=== PATIENT | female | born 1935 | race Caucasian/White ===

== ENCOUNTER → 2016-10-07 | Outpatient (CLI) | payer MEDICARE, BC ==
[2016-10-07 13:41] LABS: Blood Urea Nitrogen 9 mg/dL (7-17); Non-African American GFR(MDRD) >60 (>60 ml/min/1.73 sqM)
--- NOTE | 2016-10-07 15:03 | CT ---
EXAMINATION TYPE: CT chest w con DATE OF EXAM: 10/07/2016 2:02 PM COMPARISON: Chest CT April 12, 2016 and older CTs back through July 01, 2013. HISTORY: Patient has no complaints at time of study. Follow up study for known lung CA. CT DLP: 417 mGycm. Automated Exposure Control for Dose Reduction was Utilized. TECHNIQUE: CT scan of the thorax is performed following with IV Contrast, patient injected with 100 mL of Omnipaque 300. FINDINGS: LUNGS: Mild underlying emphysematous change is redemonstrated. Surgical changes right hilar level wit h clips and right-sided volume loss is redemonstrated. There are some scattered areas of scarring thr oughout the mid and lower lungs bilaterally. Ill-defined groundglass opacity in the right midlung is present slightly more prominent on current study near axial image 29. Nonspecific finding consider ed parker and/or infiltrate. Small area of pleural thickening anterolateral right lower lung on axial image 36 is redemonstrated and stable. No new parenchymal nodule or mass is clearly seen bilaterally. No p leural effusion or pneumothorax is noted. MEDIASTINUM: There is enlarging right hilar lymph node measuring 1.7 x 1.5 cm on axial image 28. The re is increasing prominent AP window, right paratracheal, and prevascular lymph nodes on axial image 22. Surgical changes from esophagectomy and gastric pull-up procedure are redemonstrated. OTHER: Heterogeneously dense fibroglandular tissue remains present in both breasts. There is healed a nterolateral right rib fractures redemonstrated. IMPRESSION: Some new thoracic adenopathy is felt now present. Recurrent neoplasm cannot be excluded. Consider PET/CT follow-up.
== END | disposition home or self-care (01) ==
LOC: RADCTMAIN 12:21
PROVIDERS: ATTEND Internal Medicine Hematology & Oncology
DX: C34.90 Malignant neoplasm of unspecified part of unspecified bronchus or lung (principal)
CPT/HCPCS: 82565; 84520; 71260; 36415; Q9967

== ENCOUNTER → 2016-12-07 | Outpatient (CLI) | payer MEDICARE, BC ==
--- NOTE | 2016-12-08 10:25 | PE ---
Nuclear medicine PET/CT HISTORY: C 34.90, lung carcinoma Patient received 13.6 mCi F-18 FDG intravenously. Delayed scanning performed from the skull base to t he mid thighs. Localization and attenuation correction CT scan was performed, correlation is made to chest CT 07 October 2016, prior nuclear medicine PET/CT sixth of December 2012 FINDINGS: Neck and chest: Emphysematous changes are present within the lungs. Some vague nodularity is present at the left lung base without corresponding hypermetabolic uptake. Postop changes are again noted. Nodularity present in the right lung laterally was not evident on prior CT, there is a subpleural nod ule measuring 15 mm, additional nodule measuring 8 mm more centrally. There is corresponding hypermet abolic uptake. Right hilar nodes shows an SUV value of only approximately 2, the nodularity within th e peripheral lung measures 2.6, more central nodular density SUV 2.3. Focus of hypermetabolic uptake within the gastric pull-through measures 2.4 SUV and is of questionable clinical significance. Abdomen pelvis: Adrenal glands are unremarkable. No retroperitoneal adenopathy. No suspicious hyperme tabolic uptake. Diverticular change in the sigmoid colon. Bones are stable. IMPRESSION: Suspicious hypermetabolic uptake in the right lung and possibly hilar region as described
== END | disposition home or self-care (01) ==
LOC: RADPETMAIN 08:16
PROVIDERS: ATTEND Internal Medicine Hematology & Oncology
DX: C34.90 Malignant neoplasm of unspecified part of unspecified bronchus or lung (principal)
CPT/HCPCS: 78815; A9552

== ENCOUNTER → 2017-03-07 | Outpatient (CLI) | payer MEDICARE, BC ==
[2017-03-07 10:22] LABS: Blood Urea Nitrogen 13 mg/dL (7-17); Non-African American GFR(MDRD) >60 (>60 ml/min/1.73 sqM)
--- NOTE | 2017-03-07 11:22 | CT ---
EXAMINATION TYPE: CT chest w con DATE OF EXAM: 03/07/2017 COMPARISON: 12/07/2016, 116 7 HISTORY: Lung cancer CT DLP: 139.60 mGycm Automated exposure control for dose reduction was used. CONTRAST: CT scan of the chest is performed with IV Contrast, patient injected with 100 ml mL of Omnipaque 300. FINDINGS: LUNGS: Apical pleural-based nodule right upper lobe noted measuring 2 mm stable. Posterior pleural-ba sed 2 mm nodule left upper lobe stable. Subsegmental linear changes most typical of atelectasis. [place]ares ges of COPD are noted. Subsegmental areas are seen in both lung bases as well of atelectasis. Correlate for previous gastric surgery with possible pull-through procedure MEDIASTINUM: No pathologic adenopathy within the mediastinum, hilum or axilla. 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 Extensive degenerative changes of the spin e noted.. IMPRESSION: 1. A pleural-based nodule/ consolidation seen by recent PET scan has resolved. 2. Less than 5 mm subpleural nodularity bilaterally is nonspecific stable from previous CT scan. 3. No pathologic adenopathy.
== END ==
LOC: RADCTMAIN 09:46
PROVIDERS: ATTEND Internal Medicine Hematology & Oncology
DX: C34.90 Malignant neoplasm of unspecified part of unspecified bronchus or lung (principal)
CPT/HCPCS: 82565; 84520; 71260; 36415; Q9967

== ENCOUNTER → 2017-09-29 | Outpatient (CLI) | payer MEDICARE ==
[2017-09-29 12:08] LABS: Blood Urea Nitrogen 12 mg/dL (7-17)
--- NOTE | 2017-09-29 12:46 | CT ---
EXAMINATION TYPE: CT chest w con DATE OF EXAM: 09/29/2017 COMPARISON: 03/07/2017 HISTORY: Follow up on right sided lung cancer CT DLP: 144.0 mGycm Automated exposure control for dose reduction was used. CONTRAST: CT scan of the chest is performed with IV Contrast, patient injected with 100 mL of Omnipaque 300. FINDINGS: LUNGS: Apical pleural-based nodule right upper lobe noted measuring 2 mm stable. Posterior pleural-ba sed 2 mm nodule left upper lobe stable. Subsegmental linear changes most typical of atelectasis. Changes of COPD are noted. Subsegmental area s are seen in both lung bases as well of atelectasis. Correlate for previous gastric surgery with possible pull-through procedure. There is a 5 mm nodule along the posterior margin of the left lower lobe and a ill-defined nodular de nsity in the right upper lobe image 30 measuring 3 mm. These are too small to characterize but not de finitively seen on the previous exam. MEDIASTINUM: There are no greater than 1 cm hilar or mediastinal lymph nodes. No pericardial effusi on is seen. OTHER: There is fusion of 2 right-sided ribs which are stable. Degenerative change of the spine note d. IMPRESSION: 1. There is a 5 mm nodule seen in the left lower lobe posteriorly and 3 mm nodule right upper lobe im age 29 which were not definitively seen on the previous exam and may represent new pulmonary nodules. Additional follow-up CT scan is recommended on a short-term basis given the small size of the nodule s. No pathologic adenopathy.
== END | disposition home or self-care (01) ==
LOC: RADCTMAIN 11:26
PROVIDERS: ATTEND Internal Medicine Hematology & Oncology
DX: C34.90 Malignant neoplasm of unspecified part of unspecified bronchus or lung (principal)
CPT/HCPCS: 82565; 84520; 71260; 36415; Q9967

== ENCOUNTER 2017-12-26 13:57 | Emergency (ER) | payer BC, MEDICARE ==
[2017-12-26] MEDS ORDERED: SODIUM CHLORIDE 0.9% 500 ML IV STA (15:05)
--- NOTE | 2017-12-26 15:08 | ED ---
General Adult HPI - General Chief complaint: Weakness Stated complaint: Weakness Time Seen by Provider: 12/26/17 14:24 Source: patient, family, RN notes reviewed Mode of arrival: ambulatory Limitations: no limitations - History of Present Illness Initial comments: Chief complaint and history of present illness an 82-year-old female here with her daughter. The patient has a child complaint of feeling weak. Patient reports her going back to late October she was treated twice with a Z-Yahir for chronic bronchitis. She's also been seeing an fur stretcher for her persistent cough occasionally yellow. Phlegm with speckles of yellow. Patient Teofilo Joaquina in for COPD. Decreased appetite. Denies fever or pain. States she was so weak this morning she had difficulty walking after she cleaned her house. - Related Data Home Medications Medication Instructions Recorded Confirmed Albuterol Nebulized [Ventolin 2.5 mg INHALATION RT-TID 01/25/14 12/26/17 Nebulized] Benazepril [Lotensin] 5 mg PO DAILY 01/25/14 12/26/17 Lansoprazole [Prevacid] 30 mg PO AC-[id number] 01/25/14 12/26/17 Metoprolol Tartrate [Lopressor] 25 mg PO BID 01/25/14 12/26/17 Montelukast [Singulair] 10 mg PO HS 01/25/14 12/26/17 Albuterol Sulfate [Proair Hfa] 1 - 2 puff INHALATION RT-Q6H PRN 09/15/14 Budesonide-Formot 160-4.5 Mcg 1 puff INHALATION RT-BID 09/15/14 12/26/17 [Symbicort 160-4.5 Mcg Inhaler] Ascorbic Acid [Vitamin C] 1,000 mg PO DAILY 12/26/17 12/26/17 Cholecalciferol [Vitamin D3] 1,000 unit PO DAILY 12/26/17 12/26/17 Cider Vinegar [Apple Cider Vinegar] 300 mg PO DAILY 12/26/17 12/26/17 Echinacea 400 mg PO DAILY 12/26/17 12/26/17 Melatonin 10 mg PO HS 12/26/17 12/26/17 Multivitamins, Thera [Multivitamin 1 tab PO DAILY 12/26/17 12/26/17 (formulary)] Ubidecarenone [Co Q-10] 100 mg PO DAILY 12/26/17 12/26/17 Vitamin A 8,000 unit PO DAILY 12/26/17 12/26/17 Vitamin B Complex 1 cap PO DAILY 12/26/17 12/26/17 Vitamin E 1,000 unit PO DAILY 12/26/17 12/26/17 Previous Rx's Medication Instructions Recorded Ciprofloxacin HCl [Cipro] 500 mg PO Q12HR #14 tablet 12/26/17 Phenazopyridine [Pyridium] 200 mg PO TID #6 tablet 12/26/17 Allergies Allergy/AdvReac Type Severity Reaction Status Date / Time Penicillins Allergy Rash/Hives, Verified 12/26/17 14:30 swelling at injection site sulfamethoxazole AdvReac Diarrhea Verified 12/26/17 14:30 [From Bactrim] trimethoprim [From Bactrim] AdvReac Diarrhea Verified 12/26/17 14:30 Review of Systems ROS Statement: Those systems with pertinent positive or pertinent negative responses have been documented in the HPI. Review of systems no headache or visual acuity changes, she has had cataract surgery. Denies any sore throat. Denies chest pain but states her breathing feels as though it's tight, has history of COPD. Updrafts 3 times daily. Stop using her Spiriva one month ago because of frequent urinations. Denies fevers. Denies nausea vomiting or diarrhea. No neuro deficits. Subjective complaint of feeling weak this past several days. All systems were reviewed Past medical problems significant for asthma, COPD, lung cancer 4 years ago. Patient had surgery followed by chemotherapy. Check CAT scan this past September and she states there is been no recurrence. Other medical problems include GERD and reflux. Hypertension and diverticulosis. Patient's surgeries include tonsillectomy, appendectomy bilateral knee arthroscopy. She also reports that she had a hiatal hernia surgery that resulted in a perforation of the esophagus. Subsequent surgery called for a stomach to be pulled up in her chest. cancers in the family include a sister with breast cancer. The patient has ALLERGIES to penicillin and sulfa. She quit smoking 25 years ago. Drinks 2 beers per day. ROS Other: All systems not noted in ROS Statement are negative. Past Medical History Past Medical History: Asthma, Cancer, COPD, GERD/Reflux, Hypertension Additional Past Medical History / Comment(s): arrythmia, hx diverticulitis, hx lung cancer History of Any Multi-Drug Resistant Organisms: MRSA Date of last positivie culture/infection: 12/27/2013 MDRO Source:: lung and wound Past Surgical History: Appendectomy, Tonsillectomy Additional Past Surgical History / Comment(s): neema knee arthroscopy, rt lower lobectomy, hiatal hernia surgery, cataracts Past Anesthesia/Blood Transfusion Reactions: Motion Sickness Past Psychological History: No Psychological Hx Reported Smoking Status: Former smoker Past Alcohol Use History: Daily Past Drug Use History: None Reported - Past Family History Sister(s) Family Medical History: Cancer General Exam - General Exam Comments Initial Comments: General: The patient is awake and alert, in no distress, and does not appear acutely ill. Complains of feeling weak in general increasing over the past week. No specific complaints of pain. COPD history. Vital signs temperature 98.6 pulse 99 respiratory rate 20 pulse ox 98% room air blood pressure 138/67 Eye: Pupils are equal, round and reactive to light, extra-ocular movements are intact ; there is normal conjunctiva bilaterally. No signs of icterus. History of cataract surgery. Ears, nose, mouth and throat: There are moist mucous membranes and no oral lesions. Neck: The neck is supple, there is no tenderness, no anterior cervical lymphadenopathy. Thyroid not enlarged. Cardiovascular: There is a regular rate and rhythm. No murmur, rub or gallop is appreciated. Respiratory: Lungs are clear to auscultation, respirations are non-labored, breath sounds are equal. No wheezes, stridor, rales, or rhonchi. History of COPD. States she has chronic cough worse yesterday than today. Recently treated for bronchitis. Gastrointestinal: Soft, non-distended, non-tender abdomen without masses or organomegaly noted. There is no rebound or guarding present. No CVA tenderness. Bowel sounds are unremarkable. Back: There is no tenderness to palpation in the midline. There is no obvious deformity. No rashes noted. Musculoskeletal: Normal ROM, no tenderness, There is no pedal edema. There is no calf tenderness or swelling. Sensation intact. Neurological: Complains of weakness but is neurologically intact, no focal or lateralizing findings. Weakness resolved. Skin: Skin is warm and dry and no rashes or lesions are noted. Psychiatric: Cooperative, Limitations: no limitations Course Vital Signs 12/26/17 12/26/17 12/26/17 14:16 15:27 15:28 Temperature 98.6 F Pulse Rate 99 Respiratory 20 16 Rate Blood Pressure 138/67 148/67 O2 Sat by Pulse 98 Oximetry EKG Findings - EKG Comments: EKG Findings:: EKG was done and reviewed at 1533 showing sinus rhythm with marked sinus arrhythmia. No acute ST elevation no ectopy no ischemic changes. Rate 77 MD interval was 168 QRS duration is 80, QT [address] Sanchez Medical Decision Making - Medical Decision Making Medical decision making; this is an 82-year-old female here with family. Her complaint today is weakness. Also frequency of urination but no dysuria. Patient's labs show white count of 5.6 hemoglobin 13 hematocrit of 38, potassium 3.9, BUN 11 creatinine 0.6 GFR 85 glucose 96, troponin less than 0.012. Urine shows large leuk esterase and greater than 182 whites and 3 reds. This is being cultured. Chest x-ray is done AP and lateral view and reviewed by radiologist his impression is heart size is normal. The pulmonary vasculature is normal. Lungs are clear. Surgical clips on the right hilar region. There is hyperinflation flattening of the diaphragms compatible COPD. Impression no significant change from previous exam. As read by Dr. Oh I discussed with the patient and her family at bedside the results including evidence of urinary tract infection. On emergency room the patient will be given a Cipro 500 and Pyridium 200. Advised to continue medications tomorrow. Increase fluid intake. Follow-up with family physician. Certainly return emergency room as needed. - Lab Data Result diagrams: 12/26/17 15:21 12/26/17 15:21 Lab Results 12/26/17 12/26/17 12/26/17 Range/Units 15:21 15:21 15:21 WBC 5.6 (3.8-10.6) k/uL RBC 4.34 (3.80-5.40) m/uL Hgb 13.2 (11.4-16.0) gm/dL Hct 38.6 (34.0-46.0) % MCV 88.9 (80.0-100.0) fL MCH 30.5 (25.0-35.0) pg MCHC 34.3 (31.0-37.0) g/dL RDW 13.1 (11.5-15.5) % Plt Count 233 (150-450) k/uL Neutrophils % 57 % Lymphocytes % 24 % Monocytes % 9 % Eosinophils % 8 % Basophils % 1 % Neutrophils # 3.2 (1.3-7.7) k/uL Lymphocytes # 1.3 (1.0-4.8) k/uL Monocytes # 0.5 (0-1.0) k/uL Eosinophils # 0.4 (0-0.7) k/uL Basophils # 0.0 (0-0.2) k/uL Sodium 134 L (137-145) mmol/L Potassium 3.9 (3.5-5.1) mmol/L Chloride 98 (98-107) mmol/L Carbon Dioxide 22 (22-30) mmol/L Anion Gap 14 mmol/L BUN 11 (7-17) mg/dL Creatinine 0.60 (0.52-1.04) mg/dL Est GFR (CKD-EPI)AfAm >90 (>60 ml/min/1.73 sqM) Est GFR (CKD-EPI)NonAf 85 (>60 ml/min/1.73 sqM) Glucose 96 (74-99) mg/dL Plasma Lactic Acid Jaxon (0.7-2.0) mmol/L Calcium 9.3 (8.4-10.2) mg/dL Total Bilirubin 0.4 (0.2-1.3) mg/dL AST 31 (14-36) U/L ALT 31 (9-52) U/L Alkaline Phosphatase 75 (38-126) U/L Total Creatine Kinase 112 (30-135) U/L CK-MB (CK-2) 1.4 (0.0-2.4) ng/mL CK-MB (CK-2) Rel Index 1.3 Troponin I <0.012 (0.000-0.034) ng/mL Total Protein 7.2 (6.3-8.2) g/dL Albumin 4.1 (3.5-5.0) g/dL Urine Color Urine Appearance (Clear) Urine pH (5.0-8.0) Ur Specific [place] (1.001-1.035) Urine Protein (Negative) Urine Glucose (UA) (Negative) Urine Ketones (Negative) Urine Blood (Negative) Urine Nitrite (Negative) Urine Bilirubin (Negative) Urine Urobilinogen (<2.0) mg/dL Ur Leukocyte Esterase (Negative) Urine RBC (0-5) /hpf Urine WBC (0-5) /hpf Urine WBC Clumps (None) /hpf Urine Bacteria (None) /hpf 12/26/17 12/26/17 Range/Units 15:21 15:25 WBC (3.8-10.6) k/uL RBC (3.80-5.40) m/uL Hgb (11.4-16.0) gm/dL Hct (34.0-46.0) % MCV (80.0-100.0) fL MCH (25.0-35.0) pg MCHC (31.0-37.0) g/dL RDW (11.5-15.5) % Plt Count (150-450) k/uL Neutrophils % % Lymphocytes % % Monocytes % % Eosinophils % % Basophils % % Neutrophils # (1.3-7.7) k/uL Lymphocytes # (1.0-4.8) k/uL Monocytes # (0-1.0) k/uL Eosinophils # (0-0.7) k/uL Basophils # (0-0.2) k/uL Sodium (137-145) mmol/L Potassium (3.5-5.1) mmol/L Chloride (98-107) mmol/L Carbon Dioxide (22-30) mmol/L Anion Gap mmol/L BUN (7-17) mg/dL Creatinine (0.52-1.04) mg/dL Est GFR (CKD-EPI)AfAm (>60 ml/min/1.73 sqM) Est GFR (CKD-EPI)NonAf (>60 ml/min/1.73 sqM) Glucose (74-99) mg/dL Plasma Lactic Acid [place] 0.9 (0.7-2.0) mmol/L Calcium (8.4-10.2) mg/dL Total Bilirubin (0.2-1.3) mg/dL AST (14-36) U/L ALT (9-52) U/L Alkaline Phosphatase (38-126) U/L Total Creatine Kinase (30-135) U/L CK-MB (CK-2) (0.0-2.4) ng/mL CK-MB (CK-2) Rel Index Troponin I (0.000-0.034) ng/mL Total Protein (6.3-8.2) g/dL Albumin (3.5-5.0) g/dL Urine Color Light Yellow Urine Appearance Cloudy H (Clear) Urine pH 7.0 (5.0-8.0) Ur Specific [place] 1.008 (1.001-1.035) Urine Protein Negative (Negative) Urine Glucose (UA) Negative (Negative) Urine Ketones Negative (Negative) Urine Blood Negative (Negative) Urine Nitrite Negative (Negative) Urine Bilirubin Negative (Negative) Urine Urobilinogen <2.0 (<2.0) mg/dL Ur Leukocyte Esterase Large H (Negative) Urine RBC 3 (0-5) /hpf Urine WBC >182 H (0-5) /hpf Urine WBC Clumps Few H (None) /hpf Urine Bacteria Few H (None) /hpf Disposition Clinical Impression: Urinary tract infection, Generalized weakness Disposition: HOME SELF-CARE Condition: Fair Instructions: Urinary Tract Infection in Women (ED) Additional Instructions: Increase fluids. Take Cipro twice a day for 1 week and Pyridium 3 times a day for 2 days. Pyridium will turn the urine orange. Follow-up with family physician or return emergency room as needed Prescriptions: Ciprofloxacin HCl [Cipro] 500 mg PO Q12HR #14 tablet Phenazopyridine [Pyridium] 200 mg PO TID #6 tablet Referrals: Rj Larson MD [Primary Care Provider] - 1-2 days Time of Disposition: 16:32
[2017-12-26 15:33] VITALS: RESP 16
[2017-12-26 15:33] LABS: Basophils % (A) 1 %; Eosinophils # (A) 0.4 k/uL (0-0.7); Eosinophils % (A) 8 %; HCT 38.6 % (34.0-46.0); HGB 13.2 gm/dL (11.4-16.0); Lymphocytes # (A) 1.3 k/uL (1.0-4.8); Lymphocytes % (A) 24 %; MCH 30.5 pg (25.0-35.0); MCHC 34.3 g/dL (31.0-37.0); MCV 88.9 fL (80.0-100.0); Mean Platelet Volume 6.8; Monocytes # (A) 0.5 k/uL (0-1.0); Monocytes % (A) 9 %; Neutrophils # (A) 3.2 k/uL (1.3-7.7); Neutrophils % (A) 57 %; Platelet Count 233 k/uL (150-450); RBC 4.34 m/uL (3.80-5.40); RDW 13.1 % (11.5-15.5); WBC 5.6 k/uL (3.8-10.6)
[2017-12-26 15:44] LABS: ALT 31 U/L (9-52); AST 31 U/L (14-36); Albumin 4.1 g/dL (3.5-5.0); Alkaline Phosphatase 75 U/L (38-126); Anion Gap 14 mmol/L; Blood Urea Nitrogen 11 mg/dL (7-17); Calcium 9.3 mg/dL (8.4-10.2); Carbon Dioxide 22 mmol/L (22-30); Chloride 98 mmol/L (98-107); Glucose 96 mg/dL (74-99); Potassium 3.9 mmol/L (3.5-5.1); Sodium 134 mmol/L (137-145); Total Bilirubin 0.4 mg/dL (0.2-1.3); Total Protein 7.2 g/dL (6.3-8.2)
[2017-12-26 15:48] LABS: Creatine Kinase 112 U/L (30-135)
[2017-12-26 15:48] LABS: Appearance,Urine Cloudy (Clear); Bacteria,Urine Few /hpf; Bilirubin,Urine Negative (Negative); Blood,Urine Negative (Negative); Color,Urine Light Yellow; Glucose,Urine (UA) Negative (Negative); Ketones,Urine Negative (Negative); Leukocyte Esterase,Urine Large (Negative); Nitrite,Urine Negative (Negative); Protein,Urine Negative (Negative); RBC,Urine 3 /hpf (0-5); Specific Gravity,Urine 1.008 (1.001-1.035); Urobilinogen,Urine <2.0 mg/dL (<2.0); WBC,Urine >182 /hpf (0-5)
--- NOTE | 2017-12-26 15:54 | XR ---
EXAMINATION TYPE: XR chest 2V DATE OF EXAM: 12/26/2017 COMPARISON: 08/14/2015, 08/12/2015 INDICATION: Weakness chest discomfort bronchitis history of COPD lung CA TECHNIQUE: Frontal and lateral views of the chest are obtained. FINDINGS: The heart size is normal. The pulmonary vasculature is normal. The lungs are clear. Surgical clips are in the right hilar region. There is hyperinflation flattenin g the diaphragms compatible COPD. IMPRESSION: 1. No significant change from previous exams
[2017-12-26 16:01] LABS: Creatine Kinase MB 1.4 ng/mL (0.0-2.4); Troponin I <0.012 ng/mL (0.000-0.034)
[2017-12-26] MEDS ORDERED: CIPROFLOXACIN HCL 500 MG TAB PO STA (16:29)
[2017-12-26] MEDS ORDERED: PHENAZOPYRIDINE 200 MG TAB PO STA (16:30)
[2017-12-26 16:51] VITALS: BP 150/67; PULSE 73; TEMP 98.1
== END 2017-12-26 16:49 | disposition home or self-care (01) ==
LOC: EC 13:57
DX: N39.0 Urinary tract infection, site not specified (principal); R53.1 Weakness; J44.9 Chronic obstructive pulmonary disease, unspecified; I10 Essential (primary) hypertension; Z85.118 Personal history of other malignant neoplasm of bronchus and lung; Z86.14 Personal history of Methicillin resistant Staphylococcus aureus infection; Z87.891 Personal history of nicotine dependence; Z79.51 Long term (current) use of inhaled steroids; Z79.899 Other long term (current) drug therapy; Z88.0 Allergy status to penicillin; Z88.2 Allergy status to sulfonamides
CPT/HCPCS: 36415; 71046; 80053; 81001; 82550; 82553; 83605; 84484; 85025; 87086; 93005; 96360; 99285

== ENCOUNTER → 2018-04-06 | Outpatient (CLI) | payer MEDICARE ==
[2018-04-06 10:09] LABS: Blood Urea Nitrogen 11 mg/dL (7-17)
--- NOTE | 2018-04-06 11:32 | CT ---
EXAMINATION TYPE: CT chest w con DATE OF EXAM: 04/06/2018 COMPARISON: 09/29/2017 and PET/CT dated 12/07/2016 HISTORY: Follow up of lung cancer CT DLP: 130.7 mGycm. Automated Exposure Control for Dose Reduction was Utilized. TECHNIQUE: CT scan of the thorax is performed following with IV Contrast, patient injected with 100 mL of Isovue 300. FINDINGS: LUNGS: Right apical nodularity is unchanged from the prior as is focal pleural thickening along the p eripheral right midlung and left lower lobes as well as of the right anterior middle lobe. The previo usly seen left basilar pulmonary nodule measuring 5 mm has resolved in the interim and therefore was likely related to an area of atelectasis. Unchanged 2 mm right midlung pulmonary nodule seen on serie s 4 image 34. Additionally the previously seen 3 mm right upper lobe pulmonary nodule is also entirel y resolved in the interim. This may have been of infectious or inflammatory etiology as this did not appear to atelectasis on the prior exam. There is mild background centrilobular emphysematous change. Subpleural reticular opacities likely represent subsegmental atelectasis. Peribronchial cuffing with in the left lower lobe as seen on series 4 image 35 and 36 as well as image 38 may be reactive in und erlying COPD or other infectious etiology such as bronchitis. Focal mucus plugging is seen within the right lower lobe as a bronchus on series 4 image 41 and 43 extend with nodular area on image 42 repr esenting plugging. MEDIASTINUM: Gastric pull-through surgery has been performed. Contrast is seen within the distal ben- esophagus. There are no greater than 1 cm hilar or mediastinal lymph nodes. No pericardial effusion is seen. Aortic root is upper limits of normal size measuring 3.9 cm. OTHER: No new osseous lesion. Fusion of 2 right ribs with adjacent pleural reaction is unchanged and likely sequela of prior trauma. Moderate degenerative changes of the spine are noted. IMPRESSION: 1. Stable multifocal pleural thickening with adjacent fusion of right anterior lateral ribs that may be posttraumatic in nature. 2. Resolution of the previously seen 5 mm left basilar nodule and 3 mm right upper lobe nodule [place] on the basis of atelectasis and infectious/inflammatory process respectively on the prior examina tion. No new pulmonary nodule or mass. 3. New right basilar mucus plugging and left basilar peribronchial cuffing that may be reactive in un derlying COPD or infectious such as bronchitis.
== END | disposition home or self-care (01) ==
LOC: RADCTMAIN 09:36
PROVIDERS: ATTEND Internal Medicine Hematology & Oncology
DX: C34.90 Malignant neoplasm of unspecified part of unspecified bronchus or lung (principal); J92.9 Pleural plaque without asbestos; J98.09 Other diseases of bronchus, not elsewhere classified
CPT/HCPCS: 82565; 84520; 71260; 36415; Q9967

== ENCOUNTER → 2019-04-20 | Outpatient (CLI) | payer MEDICARE ==
[2019-04-20 13:27] LABS: African American GFR (CKD) >90 (>60 ml/min/1.73 sqM); Blood Urea Nitrogen 12 mg/dL (7-17)
--- NOTE | 2019-04-20 14:20 | CT ---
EXAMINATION TYPE: CT chest w con DATE OF EXAM: 04/20/2019 COMPARISON: CT 04/06/2018 HISTORY: Follow up for lung CA CT DLP: 134.2 mGycm Automated exposure control for dose reduction was used. CONTRAST: CT scan of the chest is performed with IV Contrast, patient injected with 100 mL of Isovue 300. FINDINGS: Left diaphragmatic hernia is present, colon is present within the left lower chest at the l evel of the splenic flexure. LUNGS: The lungs are stable, there is no concerning parenchymal mass or nodule identified. There is no pleural effusion or pneumothorax seen, areas of pleural thickening and scarring are stable. The tracheobronchial tree is patent. Volume loss present in the right hemithorax. MEDIASTINUM: There are no greater than 1 cm hilar or mediastinal lymph nodes. No pericardial effusi on is seen. Patient shows post esophagectomy and gastric pull-through changes as on prior. Coronary artery calcifications are present. AORTA: No additional significant abnormality is seen. OTHER: Spine shows a stable appearance. Bones are stable. IMPRESSION: Stable exam, no new finding. Diaphragmatic hernia on the left as described containing co ruben without evident obstruction
== END ==
LOC: RADCTMAIN 12:39
PROVIDERS: ATTEND Internal Medicine Hematology & Oncology
DX: C34.90 Malignant neoplasm of unspecified part of unspecified bronchus or lung (principal); K44.9 Diaphragmatic hernia without obstruction or gangrene; Z88.0 Allergy status to penicillin
CPT/HCPCS: 36415; 71260; 82565; 84520

== ENCOUNTER → 2019-07-14 | Outpatient (CLI) | payer MEDICARE | LOC: LABWHC1 16:48 | PROVIDERS: ATTEND Internal Medicine Critical Care Medicine | DX: J45.909 Unspecified asthma, uncomplicated (principal) | CPT/HCPCS: 36415; 82785; 85008 ==

== ENCOUNTER 2020-03-16 17:39 | Observation (INO) | payer MEDICARE ==
--- NOTE | 2020-03-16 17:57 | ED ---
Altered Mental Status HPI - General Stated Complaint: Poss Stroke Time Seen by Provider: 03/16/20 17:39 Source: patient, RN/MD, EMS, RN notes reviewed, old records reviewed - History of Present Illness Initial Comments: This is a 84-year-old female who presents to [facility] slurred speech and weakness at around 2:10 PM this afternoon. She was feeling well earlier states she had eaten some ice cream and had some beer felt dizzy no chest pain no shortness breath nausea vomiting she did have some change in her mentation however. She was brought into that facility and evaluated she was found be hypoglycemic with a low blood sugar. This was corrected. CAT scan was negative she states she has no memory of the events she's feeling back to normal however now. She was transported here by EMS. MD Complaint: altered mental status, confusion - Related Data Home Medications Medication Instructions Recorded Confirmed Albuterol Nebulized [Ventolin 2.5 mg INHALATION RT-TID 01/25/14 12/26/17 Nebulized] Benazepril [Lotensin] 5 mg PO DAILY 01/25/14 12/26/17 Lansoprazole [Prevacid] 30 mg PO [id number] 01/25/14 12/26/17 Metoprolol Tartrate [Lopressor] 25 mg PO BID 01/25/14 12/26/17 Montelukast [Singulair] 10 mg PO HS 01/25/14 12/26/17 Albuterol Sulfate [Proair Hfa] 1 - 2 puff INHALATION RT-Q6H PRN 09/15/14 12/26/17 Budesonide-Formot 160-4.5 Mcg 1 puff INHALATION RT-BID 09/15/14 12/26/17 [Symbicort 160-4.5 Mcg Inhaler] Ascorbic Acid [Vitamin C] 1,000 mg PO DAILY 12/26/17 12/26/17 Cholecalciferol [Vitamin D3] 1,000 unit PO DAILY 12/26/17 12/26/17 Cider Vinegar [Apple Cider Vinegar] 300 mg PO DAILY 12/26/17 12/26/17 Echinacea 400 mg PO DAILY 12/26/17 12/26/17 Melatonin 10 mg PO HS 12/26/17 12/26/17 Multivitamins, Thera [Multivitamin 1 tab PO DAILY 12/26/17 12/26/17 (formulary)] Ubidecarenone [Co Q-10] 100 mg PO DAILY 12/26/17 12/26/17 Vitamin A 8,000 unit PO DAILY 12/26/17 12/26/17 Vitamin B Complex 1 cap PO DAILY 12/26/17 12/26/17 Vitamin E 1,000 unit PO DAILY 12/26/17 12/26/17 Previous Rx's Medication Instructions Recorded Ciprofloxacin HCl [Cipro] 500 mg PO Q12HR #14 tablet 12/26/17 Phenazopyridine [Pyridium] 200 mg PO TID #6 tablet 12/26/17 Allergies Allergy/AdvReac Type Severity Reaction Status Date / Time Penicillins Allergy Rash/Hives, Verified 03/16/20 18:08 swelling at injection site sulfamethoxazole AdvReac Diarrhea Verified 03/16/20 18:08 [From Bactrim] trimethoprim [From Bactrim] AdvReac Diarrhea Verified 03/16/20 18:08 Review of Systems ROS Statement: Those systems with pertinent positive or pertinent negative responses have been documented in the HPI. ROS Other: All systems not noted in ROS Statement are negative. Past Medical History Past Medical History: Asthma, Cancer, COPD, GERD/Reflux, Hypertension Additional Past Medical History / Comment(s): arrythmia, hx diverticulitis, hx lung cancer History of Any Multi-Drug Resistant Organisms: MRSA Date of last positivie culture/infection: 12/27/2013 MDRO Source:: lung and wound Past Surgical History: Appendectomy, Tonsillectomy Additional Past Surgical History / Comment(s): neema knee arthroscopy, rt lower lobectomy, hiatal hernia surgery, cataracts Past Anesthesia/Blood Transfusion Reactions: Motion Sickness Past Psychological History: No Psychological Hx Reported Smoking Status: Former smoker Past Alcohol Use History: Daily Past Drug Use History: None Reported - Past Family History Sister(s) Family Medical History: Cancer General Exam - General Exam Comments Initial Comments: This is a well developed well-nourished awake alert oriented 3 female General appearance: alert, in no apparent distress Head exam: Present: atraumatic, normocephalic, normal inspection Eye exam: Present: normal appearance, PERRL, EOMI. Absent: scleral icterus, conjunctival injection, periorbital swelling ENT exam: Present: normal exam, mucous membranes moist Neck exam: Present: normal inspection, full ROM, other (No stridor JVD or bruits). Absent: tenderness, meningismus, lymphadenopathy Respiratory exam: Present: normal lung sounds bilaterally. Absent: respiratory distress, wheezes, rales, rhonchi, stridor Cardiovascular Exam: Present: regular rate, normal rhythm, normal heart sounds. Absent: systolic murmur, diastolic murmur, rubs, gallop, clicks GI/Abdominal exam: Present: soft, normal bowel sounds. Absent: distended, tenderness, guarding, rebound, rigid Extremities exam: Present: normal inspection, full ROM, normal capillary refill. Absent: tenderness, pedal edema, joint swelling, calf tenderness Back exam: Present: normal inspection Neurological exam: Present: alert, oriented X3, CN II-XII intact Psychiatric exam: Present: normal affect, normal mood Skin exam: Present: warm, dry, intact, normal color. Absent: rash Course Vital Signs 03/16/20 03/16/20 18:11 19:05 Temperature 97.7 F Pulse Rate 64 69 Respiratory 18 18 Rate Blood Pressure 192/94 175/96 O2 Sat by Pulse 98 97 Oximetry Medical Decision Making - Medical Decision Making I did review the materials presented from [facility]. I did discuss the case with Dr. Subramanian patient will be admitted for evaluation for TIA. Also hypoglycemia. - Lab Data Lab Results 03/16/20 Range/Units 18:10 POC Glucose (mg/dL) 149 H (75-99) mg/dL POC Glu [employer] KRISTIE Raza Bladimir Disposition Clinical Impression: TIA (transient ischemic attack), Hypoglycemia Disposition: ADMITTED IP TO THIS HOSP Condition: Fair Referrals: Sourav Pham MD [Primary Care Provider] - 1-2 days
[2020-03-16 18:12] LABS: Glucose,Whole Blood 149 mg/dL (75-99)
[2020-03-16] MEDS ORDERED: ALBUTEROL NEBULIZED 2.5 MG/3 ML INHALATION PRN (19:26)
[2020-03-16] MEDS: SYMBICORT 160-4.5 MCG INHALER INHALATION SCH (21:21)
[2020-03-16] MEDS: SODIUM CHLORIDE 0.9% 1,000 ML IV SCH (22:19)
[2020-03-16] MEDS: MELATONIN 5 MG TABLET PO SCH (22:20)
[2020-03-16] MEDS: METOPROLOL TARTRATE 25 MG TAB PO SCH (22:20)
[2020-03-16] MEDS: ATORVASTATIN 80 MG TAB PO SCH (22:20)
[2020-03-16] MEDS: MONTELUKAST 10 MG TAB PO SCH (22:20)
--- NOTE | 2020-03-17 01:01 | HP ---
HISTORY AND PHYSICAL DATE OF SERVICE: 03/16/2020 CHIEF COMPLAINT: Syncope. HISTORY OF PRESENT ILLNESS: This 84-year-old woman with a past medical history of multiple medical problems including asthma, COPD, GERD, hypertension, history of cardiac cath, history of diverticulitis, lung cancer, being followed by Dr. Pham in the outpatient setting apparently living with family. The patient apparently had abnormal weakness and some syncopal episode as well as slurring of speech. Patient was taken to [facility]. The blood sugar was found to be 34. The patient was dizzy and subsequently the EMS the blood sugar was 124. Initial labs including CT scan were negative. The patient was referred to [facility] for further evaluation and treatment. There is no history of fever, rigors. There is no history of headache or any seizures at this time. No history of trauma. PAST MEDICAL HISTORY: Asthma, COPD, GERD, hypertension, cardiac cath, history of lung cancer, history of MRSA, history of appendectomy, remote history of nicotine dependence. MEDICATIONS: Home medications are the list and they are not confirmed but include: 1. Vitamin E. 2. Vitamin B12 complex. 3. Vitamin A. 4. Coenzyme Q. 5. Pyridium. 6. Multivitamin. 7. Singulair. 8. Lopressor. 9. Melatonin. 10.Prevacid. 11.Echinacea. 12.Cipro. 13.Apple cider vinegar. 14.Vitamin D3. 15.Symbicort 160/4.5 b.i.d. 16.Lotensin. 17.Vitamin C. 18.ProAir. 19.Ventolin. ALLERGIES: PENICILLIN and BACTRIM. FAMILY HISTORY: History of cancer in the family. SOCIAL HISTORY: Remote history of smoking. No history of current smoking. Occasional alcohol intake. REVIEW OF SYSTEMS: ENT: Diminished hearing and diminished vision. CARDIOVASCULAR SYSTEM: No angina. RESPIRATORY SYSTEM: No cough. GI: As mentioned earlier. : No dysuria. NERVOUS SYSTEM: As mentioned earlier. ALLERGY/IMMUNOLOGY: As mentioned earlier. MUSCULOSKELETAL: As mentioned earlier. HEMATOLOGY: No history of any anemia. ENDOCRINE: No history of diabetes or hypothyroidism. CONSTITUTIONAL: As mentioned earlier. DERMATOLOGY: Negative. RHEUMATOLOGY: Negative. PSYCHIATRY: As mentioned earlier. PHYSICAL EXAMINATION: Patient is alert and oriented x3. Pulse is 64, blood pressure 192/94, respiration 18, temp 97.7, pulse ox 98% on room. HEENT: Conjunctivae normal. NECK: No jugular venous distention. CARDIOVASCULAR: S1, S2 muffled. RESPIRATORY: Breath sounds diminished in the bases. A few scattered rhonchi and crackles. ABDOMEN: Soft, nontender. No mass palpable. LEGS: No edema, no swelling. NERVOUS SYSTEM: Higher function as mentioned earlier. Moves all 4 limbs. No focal motor or sensory deficits. LYMPHATICS: No lymphadenopathy of the neck, axillae or groin. SKIN: No ulcer, rash or bleeding. JOINTS: No active deforming arthropathy. Cranial nerves grossly intact. Otherwise, no nystagmus, no diplopia, no visual asymmetry. LAB INVESTIGATIONS: Pending at this time. Glucose 149. ASSESSMENT: 1. Syncope for evaluation possible hypoglycemia, rule out acute stroke and transient ischemic attack. 2. History of asthma. 3. Chronic obstructive pulmonary disease. 4. Gastroesophageal reflux disease. 5. Hypertension. 6. History of cardiac arrhythmia. 7. History of diverticulitis. 8. History of lung cancer. 9. History of MRSA. 10.History of appendectomy. 11.History of tonsillectomy. 12.History remote history of nicotine dependence. RECOMMENDATIONS AND DISCUSSION: In this 84-year-old woman who presented with multiple complex medical issues, we will monitor the patient closely. Continue the current medications, continue symptomatic treatment. I recommend full neurovascular workup, neurology evaluation and neuro checks. Resume the home medications. Antiplatelet agents. Monitor blood sugars closely. The prognosis guarded because of multiple complex medical issues. Further recommendations to follow. MMODL / IJN: [id number] / MTDD
[2020-03-17] MEDS: PANTOPRAZOLE 40 MG TABLET PO SCH (06:20)
[2020-03-17] MEDS: SODIUM CHLORIDE 0.9% 1,000 ML IV SCH (06:21)
[2020-03-17 07:45] LABS: Cholesterol 155 mg/dL (<200); HDL Cholesterol 69 mg/dL (40-60); LDL Cholesterol,Calculated 79 mg/dL (0-99); Triglycerides 37 mg/dL (<150)
[2020-03-17] MEDS: SYMBICORT 160-4.5 MCG INHALER INHALATION SCH ×2 (08:25→19:40)
[2020-03-17] MEDS: LISINOPRIL 5 MG TAB PO SCH (08:42)
[2020-03-17] MEDS: ASPIRIN 325 MG TAB PO SCH (08:42)
[2020-03-17] MEDS: MULTIVITAMINS, THERA 1 EACH TAB PO SCH (08:42)
[2020-03-17] MEDS: METOPROLOL TARTRATE 25 MG TAB PO SCH ×2 (08:42→20:39)
--- NOTE | 2020-03-17 18:00 | ECHOF ---
Referral Reason:increased confusion MEASUREMENTS -------- HEIGHT: 152.4 cm WEIGHT: 56.7 kg BP: IVSd: 0.9 cm (0.6 - 1.1) LVIDd: 2.6 cm (3.9 - 5.3) LVPWd: 1.2 cm (0.6 - 1.1) IVSs: 1.2 cm LVIDs: 0.7 cm LVPWs: 1.2 cm LAESV Index (A-L): 26.40 ml/m Ao Diam: 3.3 cm (2.0 - 3.7) AV Cusp: 1.7 cm (1.5 - 2.6) LA Diam: 3.0 cm (2.7 - 3.8) MV EXCURSION: 12.148 mm (> 18.000) MV EF SLOPE: 93 mm/s (70 - 150) EPSS: 2.2 cm MV E Gene: 0.75 m/s MV DecT: 252 ms MV A Gene: 1.09 m/s MV E/A Ratio: 0.69 FINDINGS -------- Sinus rhythm. This was a technically adequate study. The left ventricular size is normal. There is borderline concentric left ventricular hypertrophy. Overall left ventricular systolic function is normal with, an EF between 55 - 60 %. The diastolic filling pattern is normal for the age of the patient 12.82. The right ventricle is normal in size. Normal LA size by volume 22+/-6 ml/m2. The right atrial size is normal. The aortic valve is trileaflet, and appears structurally normal. No aortic stenosis or regurgitation. Mild mitral annular calcification present. There is trace mitral regurgitation. The tricuspid valve appears structurally normal. Trace tricuspid regurgitation present. Right anitha tricular systolic pressure is normal at < 35 mmHg. The pulmonic valve was not well visualized. There is no pulmonic regurgitation present. The aortic root size is normal. Normal inferior vena cava with normal inspiratory collapse consistent with estimated right atrial pre ssure of 5 mmHg. There is no pericardial effusion. CONCLUSIONS -------- 1. Sinus rhythm. 2. There is borderline concentric left ventricular hypertrophy. 3. Overall left ventricular systolic function is normal with, an EF between 55 - 60 %. 4. The diastolic filling pattern is normal for the age of the patient 12.82 5. Normal LA size by volume 22+/-6 ml/m2. 6. The aortic valve is trileaflet, and appears structurally normal. No aortic stenosis or regurgitati on. 7. There is trace mitral regurgitation. 8. Trace tricuspid regurgitation present. 9. Right ventricular systolic pressure is normal at < 35 mmHg. 10. Normal inferior vena cava with normal inspiratory collapse consistent with estimated right atrial pressure of 5 mmHg. 11. There is no pericardial effusion. [employer]ING P[employer]LING PACKER: Olga Noel RDCS
--- NOTE | 2020-03-17 18:25 | P.CNNES ---
History of Present Illness Consult date: 03/17/20 Chief complaint: Altered mental status/hypoglycemia History of Present Illness: This is a new neurology consult requested for further advice and recommendations for an 84-year-old right-handed female who presented with altered mental status slurring of speech in the setting of profound hypoglycemia (glucose 34). The patient was initially seen at [facility] for this on the . The glucose was corrected. Patient had a computed tomography scan of the head which was negative for any acute intracranial pathology. And then transferred to [facility]. The patient's only recollection of this event is that she had just finished lunch which consisted of an ice cream cone and then suddenly became altered. Since admission the patient has returned back to her baseline. The medical team has been evaluating her response to insulin and currently we are pending results back that they need before they can clear her medically for discharge. Patient's medication chart reviewed. Patient is ALLERGIC to penicillin sulfa try Maxidone. Vital signs on admission: Pulse rate 64 respiratory rate 18 blood pressure 192/94 then down to 175/96 O2 sats were 9798% on room air. EKG showed a normal sinus rhythm. Patient's past medical history is significant for reactive airway disease. COPD. Gastroesophageal reflux. Hypertension previous cardiac catheterization diverticulitis. History of lung cancer. Patient's primary care doctor is Dr. Reinoso. Statin. Lisinopril. Met metoprolol. Montelukast Past Medical History Past Medical History: Asthma, Cancer, COPD, GERD/Reflux, Hypertension Additional Past Medical History / Comment(s): arrythmia, hx diverticulitis, hx lung cancer History of Any Multi-Drug Resistant Organisms: MRSA Date of last positivie culture/infection: 12/27/2013 MDRO Source:: lung and wound Past Surgical History: Appendectomy, Tonsillectomy Additional Past Surgical History / Comment(s): neema knee arthroscopy, rt lower lobectomy, hiatal hernia surgery, cataracts Past Anesthesia/Blood Transfusion Reactions: Motion Sickness Past Psychological History: No Psychological Hx Reported Smoking Status: Former smoker Past Alcohol Use History: Daily Additional Past Alcohol Use History / Comment(s): none used in over 1 month, sometimes drinks more than 7 drinks per week Past Drug Use History: None Reported - Past Family History Sister(s) Family Medical History: Cancer Medications and Allergies Home Medications Medication Instructions Recorded Confirmed Type Albuterol Nebulized [Ventolin 2.5 mg INHALATION RT-TID 01/25/14 03/16/20 History Nebulized] Benazepril [Lotensin] 5 mg PO DAILY 01/25/14 03/16/20 History Lansoprazole [Prevacid] 30 mg PO BID 01/25/14 03/16/20 History Metoprolol Tartrate [Lopressor] 25 mg PO BID 01/25/14 03/16/20 History Montelukast [Singulair] 10 mg PO HS 01/25/14 03/16/20 History Ascorbic Acid [Vitamin C] 1,000 mg PO DAILY 12/26/17 03/16/20 History Cholecalciferol [Vitamin D3] 1,000 unit PO DAILY 12/26/17 03/16/20 History Multivitamins, Thera [Multivitamin 1 tab PO DAILY 12/26/17 03/16/20 History (formulary)] Ubidecarenone [Co Q-10] 100 mg PO DAILY 12/26/17 03/16/20 History Vitamin A 8,000 unit PO DAILY 12/26/17 03/16/20 History Vitamin B Complex 1 cap PO DAILY 12/26/17 03/16/20 History Vitamin E 1,000 unit PO DAILY 12/26/17 03/16/20 History Azelastine HCl [Astepro] 1 spray NASAL BID 03/16/20 03/16/20 History Budesonide/Formoterol Fumarate 2 puff INHALATION RT-BID 03/16/20 03/16/20 History [Symbicort 80-4.5 Mcg Inhaler] Fluticasone Nasal [place] [Flonase 1 spr EA NOSTRIL BID 03/16/20 03/16/20 History Nasal [place]] Ibuprofen [Motrin] 800 mg PO TID 03/16/20 03/16/20 History Tiotropium 18 Mcg/Puff [Spiriva] 1 puff INHALATION RT-DAILY 03/16/20 03/16/20 History Allergies Allergy/AdvReac Type Severity Reaction Status Date / Time Penicillins Allergy Rash/Hives, Verified 03/16/20 20:04 swelling at injection site sulfamethoxazole AdvReac Diarrhea Verified 03/16/20 20:04 [From Bactrim] trimethoprim [From Bactrim] AdvReac Diarrhea Verified 03/16/20 20:04 Physical Examination - Vital Signs Vital Signs: Vital Signs Temp Pulse Pulse Resp BP BP Pulse Ox 03/17/20 16:00 97.9 F 59 L 16 119/60 98 03/17/20 12:00 97.9 F 61 16 114/56 97 03/17/20 08:00 98 F 71 16 153/83 99 03/17/20 04:00 97.7 F 59 L 16 130/66 98 03/17/20 00:00 97.7 F 70 16 122/63 100 03/16/20 21:53 97.8 F 69 16 123/76 96 03/16/20 20:45 97.8 F 89 18 117/48 95 03/16/20 19:05 69 18 175/96 97 Intake and Output 03/17/20 03/17/20 03/17/20 06:59 14:59 22:59 Intake Total 450 1376 Balance 450 1376 Intake: Intake, IV Titration 600 Amount Sodium Chloride 0.9% 1, 600 000 ml @ 100 mls/hr IV . Q10H [facility] Rx#:[id number] Oral 450 776 Other: Voiding Method Toilet Toilet Toilet # Voids 1 3 Weight 56.7 kg Gen. exam: Appearance: No acute distress. Thin body habitus. HEENT: Clear sclera clear oropharynx neck supple. No cervical lymphadenopathy or thyromegaly noted. Chest: Clear throughout. Cardiac: Regular rate and rhythm no murmurs noted. Pulses: Radial pedal pulses equal and symmetric. Skin: Minor bruises noted in various ages. Extremities: Significant arthritic changes noted in the hands and feet bilaterally. Neurologic exam Mental status: Patient awake alert oriented 3. Speech fluent. Affect appropriate. Pupils equally reactive to light and accommodation at 2 mm. Cranial nerves: Cranial nerves III through XII are intact. Motor examination: Moves all 4 extremities equally. No hemiparesis noted strength is 5 over 5 throughout. Pronator drift negative. Deep tendon reflexes: +2 over biceps brachial radialis. Patellar reflexes are +1 bilaterally. Ankle jerks are trace bilaterally. Plantar responses are flexor bilaterally. No ankle clonus is elicited. Sensory examination: Grossly intact to light touch and pinprick throughout. Vibratory sense is intact in the feet bilaterally. Gait examination: Patient is able to transfer from sitting to standing without difficulty. Gait is wide-based slightly wide-based but not ataxic. Results - Laboratory Findings Abnormal Lab Findings: Abnormal Labs 03/16/20 03/17/20 18:10 07:14 POC Glucose (mg/dL) 149 H HDL Cholesterol 69 H Assessment and Plan Assessment: This is a high functioning 84-year-old female who was in her usual state of health up until she experienced altered mental status with weakness and slurring of speech with a glucose of 34. Her neurologic exam is nonfocal. This patient can be cleared for discharge home from a neurological standpoint. Patient is now pending results from insulin testing. Unlikely the event was a TIA based on the setting of hypoglycemia that was profound. Would recommend however this patient be monitored closely as an outpatient. There are any further questions or concerns please note that there is no neurological service available this weekend. Thank you for this consultation. Amelia Negron M.D. Board Certified in Neurology and Sleep Medicine
--- NOTE | 2020-03-17 18:43 | PN ---
PROGRESS NOTE DATE OF SERVICE: 03/17/2020 This 84-year-old woman who was admitted with syncope had possible suspected TIA or hypoglycemia. The sugars are improved currently and HDL is 69. There is no history of any fever, rigor or chills at this time. PHYSICAL EXAMINATION: Alert and oriented x3. Pulse 59, blood pressure 119/60, respirations 16, temperature 97.9, pulse ox 97% on room air. HEENT: Conjunctivae normal. NECK: No jugular venous distention. CARDIOVASCULAR SYSTEM: S1, S2 muffled. RESPIRATORY SYSTEM: Breath sounds diminished at the bases. A few scattered rhonchi and crackles. ABDOMEN: Soft, non-tender. LEGS: No edema. No swelling. NERVOUS SYSTEM: No focal deficit. LABS: Glucose 149. HDL is 69. ASSESSMENT: 1. Syncope for evaluation and possible hypoglycemia. Rule out acute stroke or TIA. 2. History of asthma. 3. Chronic obstructive pulmonary disease. 4. Gastroesophageal reflux disease. 5. Hypertension. 6. History of cardiac arrhythmia. 7. History of diverticulitis. 8. History of lung cancer. 9. History of methicillin-resistant Staphylococcus aeruginosa. 10.History of appendectomy. 11.History of tonsillectomy. 12.Remote history of nicotine dependence. RECOMMENDATIONS AND DISCUSSION: I recommend to continue current medications, continue with the monitoring, symptomatic treatment. Full neurovascular workup. Neurology consultation. Neuro checks. Prognosis guarded because of multiple complex medical issues. Further recommendations to follow. MMODL / IJN: [id number] /
[2020-03-17] MEDS: MONTELUKAST 10 MG TAB PO SCH (20:39)
[2020-03-17] MEDS: ATORVASTATIN 80 MG TAB PO SCH (20:39)
[2020-03-17] MEDS: MELATONIN 5 MG TABLET PO SCH (20:39)
[2020-03-18] MEDS: SODIUM CHLORIDE 0.9% 1,000 ML IV SCH ×2 (00:43→01:30)
[2020-03-18] MEDS: PANTOPRAZOLE 40 MG TABLET PO SCH (06:39)
[2020-03-18] MEDS: SYMBICORT 160-4.5 MCG INHALER INHALATION SCH (08:30)
[2020-03-18 09:02] VITALS: RESP 18; TEMP 98.2
[2020-03-18] MEDS: ASPIRIN 325 MG TAB PO SCH (09:36)
[2020-03-18] MEDS: METOPROLOL TARTRATE 25 MG TAB PO SCH (09:36)
[2020-03-18] MEDS: LISINOPRIL 5 MG TAB PO SCH (09:37)
[2020-03-18] MEDS: MULTIVITAMINS, THERA 1 EACH TAB PO SCH (09:37)
[2020-03-18 11:59] LABS: Glucose,Whole Blood 100 mg/dL (75-99)
[2020-03-18 12:53] VITALS: BP 165/76; PULSE 60
--- NOTE | 2020-03-19 00:14 | DS ---
DISCHARGE SUMMARY FINAL DIAGNOSES: 1. Syncope for evaluation, possible hypoglycemia, stroke unlikely. 2. History of asthma. 3. Chronic obstructive pulmonary disease. 4. Gastroesophageal reflux disease. 5. Hypertension. 6. History of cardiac cath. 7. History of diverticulitis. 8. History of lung cancer. 9. History of MRSA. 10.History of appendectomy. 11.History of tonsillectomy. 12.Remote history of nicotine dependence. HISTORY OF PRESENT ILLNESS: This 84-year-old woman with a past medical history of multiple medical problems was admitted with syncope. The patient had possible hypoglycemia of undetermined etiology. Insulin level was normal. The patient was seen by Neurology and neurovascular present workup was negative. No chest pain. No palpitation. On exam, vitals signs stable. Cardiovascular S1, S2. Abdomen soft. Nervous system: No focal deficits. DISCHARGE ADVICE AND MEDICATIONS: 1. Diet is cardiac diet. 2. Activity limited until followup. 3. Follow up with Dr. Pham in 2-3 days. 4. Astepro 1 spray daily. 5. Coenzyme Q 100 daily. 6. Fluticasone 1 spray daily. 7. Lopressor 25 mg p.o. b.i.d. 8. Lotensin 5 mg. 9. Motrin 800 mg t.i.d. 10.Multivitamins 1 p.o. daily. 11.Prevacid 30 mg p.o. b.i.d. 12.Singulair 10 mg q.h.s. 13.Spiriva 1 puff daily. 14.Symbicort 2 puffs b.i.d. 15.Albuterol 2.5 q.i.d. 16.Vitamin A 8000 daily. 17.Vitamin B complex 1 p.o. daily. 18.Vitamin C 1000 mg. 19.Vitamin D3 1000 daily. 20.Vitamin E 1000 mg daily. 21.Aspirin 81 mg p.o. daily. 22.CBC, BMP in the outpatient setting. DISCHARGE DISPOSITION: The patient will be discharged in stable condition with guarded prognosis. MMODL / IJN: [id number] /
== END 2020-03-18 14:11 | disposition home or self-care (01) ==
LOC: EC 17:39 → 3SCARD 19:28
PROVIDERS: ADMIT Hospitalist; ATTEND Hospitalist
DX: R55 Syncope and collapse (principal); R47.81 Slurred speech; R53.1 Weakness; E16.2 Hypoglycemia, unspecified; J44.9 Chronic obstructive pulmonary disease, unspecified; K21.9 Gastro-esophageal reflux disease without esophagitis; I10 Essential (primary) hypertension; Z85.118 Personal history of other malignant neoplasm of bronchus and lung; Z87.19 Personal history of other diseases of the digestive system; Z86.14 Personal history of Methicillin resistant Staphylococcus aureus infection; Z90.49 Acquired absence of other specified parts of digestive tract; Z87.891 Personal history of nicotine dependence; Z79.899 Other long term (current) drug therapy; Z88.0 Allergy status to penicillin; Z88.1 Allergy status to other antibiotic agents; Z88.2 Allergy status to sulfonamides; Z90.2 Acquired absence of lung [part of]; Z79.51 Long term (current) use of inhaled steroids; Z79.1 Long term (current) use of non-steroidal anti-inflammatories (NSAID); Z80.9 Family history of malignant neoplasm, unspecified; Z11.59 Encounter for screening for other viral diseases
CPT/HCPCS: 96360; 96361; 99285; 36415; 94640 ×3; 93005; 93306; 97161; 97165; 80061; 84484; 83525; G0378 ×3; U0003

== ENCOUNTER → 2020-09-29 | Outpatient (CLI) | payer MEDICARE ==
[2020-09-29 13:41] LABS: Anisocytosis Slight; Basophils % (A) 1 %; Eosinophils % (A) 0 %; HCT 25.7 % (34.0-46.0); HGB 7.8 gm/dL (11.4-16.0); Hypochromasia Marked; Lymphocytes # (A) 0.9 k/uL (1.0-4.8); Lymphocytes % (A) 22 %; MCH 23.5 pg (25.0-35.0); MCHC 30.3 g/dL (31.0-37.0); MCV 77.5 fL (80.0-100.0); Mean Platelet Volume 7.9; Microcytosis Moderate; Monocytes # (A) 0.3 k/uL (0-1.0); Monocytes % (A) 7 %; Neutrophils # (A) 2.6 k/uL (1.3-7.7); Neutrophils % (A) 67 %; Platelet Count 318 k/uL (150-450); Poikilocytosis Slight; RBC 3.32 m/uL (3.80-5.40); RDW 19.5 % (11.5-15.5); WBC 3.9 k/uL (3.8-10.6)
[2020-09-29 20:19] LABS: African American GFR (CKD) 90.9 (60.0-200.0); Albumin 4.4 g/dL (3.80-4.90); Albumin/Globulin Ratio 2.2 (1.60-3.17); Anion Gap 7.3 mmol/L (4.00-12.00); BUN/Creat Ratio 21.43 Ratio (12.00-20.00); Carbon Dioxide 24.7 mmol/L (21.6-31.8); Non-African American GFR(CKD) 78.5 (60.0-200.0); Potassium 4.2 mmol/L (3.5-5.5); Total Bilirubin 0.5 mg/dL (0.3-1.2); Total Protein 6.4 g/dL (6.2-8.2)
== END | disposition home or self-care (01) ==
LOC: LABWHC1 11:59
PROVIDERS: ATTEND Internal Medicine Critical Care Medicine
DX: R06.09 Other forms of dyspnea (principal)
CPT/HCPCS: 36415; 80053; 85025

== ENCOUNTER → 2020-10-04 | Outpatient (CLI) | payer MEDICARE ==
[2020-10-04 13:53] LABS: African American GFR (CKD) >90 (>60 ml/min/1.73 sqM); Blood Urea Nitrogen 17 mg/dL (7-17); Non-African American GFR(CKD) 81 (>60 ml/min/1.73 sqM)
--- NOTE | 2020-10-04 14:34 | CT ---
EXAMINATION TYPE: CT angio chest DATE OF EXAM: 10/04/2020 2:15 PM COMPARISON: 04/20/2019 HISTORY: Shortness of breath x's [address] DLP: 135.2 mGycm Automated exposure control for dose reduction was used. CONTRAST: CTA scan of the thorax is performed with IV Contrast, patient injected with 45 mL of Isovue 370, pulm onary embolism protocol. . FINDINGS: LUNGS: Mild emphysematous changes. Biapical pleural thickening noted. Within the left upper lobe ther e is a nodular appearing density with some irregular margins measuring 1.2 x 0.8 cm anterior segment is noted axial image 77. Pleural-based thickening is seen. No pleural effusion or pneumothorax. Mild central bronchiectasis MEDIASTINUM: There is satisfactory enhancement of the pulmonary artery and its branches, there is no CT evidence for pulmonary embolism. There are no greater than 1 cm hilar or mediastinal lymph nodes. Coronary artery calcification noted. Aorta of normal caliber. Trace amount of pericardial fluid. OTHER: Stable diaphragmatic hernia. Hypertrophic and degenerative change of the spine noted. Congenit al fusion of right-sided ribs. Post esophagectomy with gastric pull-through procedure incidentally no estrada. IMPRESSION: 1. COPD with 1.2 x 0.8 cm irregular nodular density left upper lobe anterior segment could be postinf lammatory. Neoplastic process in the differential diagnosis. Correlate clinically. 2. No diagnostic evidence of pulmonary embolism. 3. Postsurgical changes compatible with gastric pull-through procedure. 4. Left hemidiaphragmatic hernia containing bowel similar in appearance to the prior exam.
== END | disposition home or self-care (01) ==
LOC: RADCTMAIN 13:19
PROVIDERS: ATTEND Internal Medicine Critical Care Medicine
DX: J44.9 Chronic obstructive pulmonary disease, unspecified (principal); R91.8 Other nonspecific abnormal finding of lung field; K44.9 Diaphragmatic hernia without obstruction or gangrene; R06.09 Other forms of dyspnea; Z88.0 Allergy status to penicillin; Z88.2 Allergy status to sulfonamides; Z98.890 Other specified postprocedural states
CPT/HCPCS: 82565; 84520; 71275; 36415; Q9967